=== PATIENT | female | born 1985 | race Caucasian/White ===

== ENCOUNTER 2018-12-02 12:55 | Emergency (ER) | payer OTHER ==
[2018-12-02] MEDS ORDERED: Tetracaine HCl/PF 0.5% 4 ML Bottle EYELF ONE (13:11)
[2018-12-02] MEDS ORDERED: Balanced Salt Solution Ophth Irrig 30 ML Bottle EYELF ONE (13:18)
--- NOTE | 2018-12-02 13:37 | EDM.PDOC ---
ED HPI GENERAL MEDICAL PROBLEM - General Chief Complaint: ENT Problem Stated Complaint: FB to L) eye Time Seen by Provider: 12/02/18 13:52 Source of Information: Reports: Patient History Limitations: Reports: No Limitations - History of Present Illness INITIAL COMMENTS - FREE TEXT/NARRATIVE: Patient is a 33-year-old female who comes in with chief complaint of left eye pain patient states that she was working she was worrying appropriate eye gear for her job a she noted a when coming up and something fell in her left eye at that time patient complained of pain and was brought in for evaluation left eye was examined under topical anesthesia revealed a 1 mm piece of bark this was removed patient still having some discomfort Onset: Today Duration: Minutes:, Getting Worse Location: Reports: Face, Other (Left eye) Quality: Reports: Burning, Stabbing Severity: Moderate Improves with: Reports: None Worsens with: Reports: Movement Associated Symptoms: Reports: No Other Symptoms Treatments BAG PRINTER: Reports: Acetaminophen, NSAIDS Left Eye Pain Score (Numeric/FACES): 8 - Related Data Allergies Allergy/AdvReac Type Severity Reaction Status Date / Time No Known Allergies Allergy Verified 12/02/18 13:04 Home Meds: Home Meds Levothyroxine 25 mcg PO ACBREAKFAST 12/02/18 [History] Omeprazole 40 mg PO DAILY 12/02/18 [History] Vits #93/Iron Fum/FA [ Formula Tablet] 1 each PO DAILY [History] hydrOXYzine HCl [Atarax] 25 mg PO Q8H PRN 12/02/18 [History] metFORMIN [Glucophage XR] 1,000 mg PO DAILY 12/02/18 [History] traZODone HCl [Trazodone HCl] 100 mg PO BEDTIME 12/02/18 [History] Past Medical History Cardiovascular History: Reports: None Respiratory History: Reports: None Gastrointestinal History: Reports: GERD Genitourinary History: Reports: None Musculoskeletal History: Reports: Fracture Neurological History: Reports: Other (See Below) Other Neuro History: infection of frontal lobe at age 21 Psychiatric History: Reports: Anxiety, Depression, Suicidal Ideation Endocrine/Metabolic History: Reports: None Hematologic History: Reports: None Immunologic History: Reports: None Oncologic (Cancer) History: Reports: None Dermatologic History: Reports: None - Infectious Disease History Infectious Disease History: Reports: Chicken Pox, Shingles - Past Surgical History HEENT Surgical History: Reports: Oral Surgery Cardiovascular Surgical History: Reports: None Respiratory Surgical History: Reports: None GI Surgical History: Reports: None Female Surgical History: Reports: Other (See Below) Other Female Surgeries/Procedures: infertility treatments currently 12/02/18 Neurological Surgical History: Reports: None Musculoskeletal Surgical History: Reports: Other (See Below) Other Musculoskeletal Surgeries/Procedures:: left ankle surgery plate and screws Social & Family History - Tobacco Use Smoking Status *Q: Former Smoker Used Tobacco, but Quit: Yes Month/Year Tobacco Last Used: 2013 ED ROS GENERAL - Review of Systems Review Of Systems: ROS reveals no pertinent complaints other than HPI. Constitutional: Reports: No Symptoms HEENT: Reports: Eye Pain Respiratory: Reports: No Symptoms Cardiovascular: Reports: No Symptoms Endocrine: Reports: No Symptoms GI/Abdominal: Reports: No Symptoms : Reports: No Symptoms Musculoskeletal: Reports: No Symptoms Skin: Reports: No Symptoms Neurological: Reports: No Symptoms Psychiatric: Reports: Anxiety Hematologic/Lymphatic: Reports: No Symptoms Immunologic: Reports: No Symptoms ED EXAM GENERAL W FULL EYE - Physical Exam Exam: See Below Exam Limited By: No Limitations General Appearance: Alert, WD/WN, No Apparent Distress Eye Exam: Bilateral Eye: Conjunctival Injection, Corneal Abrasion, EOMI With Correction: No Conjunctiva & Sclera: Left: Foreign Body Cornea Exam: Bilateral: Normal Appearance Ears: Normal External Exam, Normal Canal, Hearing Grossly Normal, Normal TMs Nose: Normal Inspection, Normal Mucosa, No Blood Throat/Mouth: Normal Inspection, Normal Lips, Normal Teeth, Normal Gums, Normal Oropharynx, Normal Voice, No Airway Compromise Head: Atraumatic, Normocephalic Neck: Normal Inspection, Supple, Non-Tender, Full Range of Motion Respiratory/Chest: No Respiratory Distress, Lungs Clear, Normal Breath Sounds, No Accessory Muscle Use, Chest Non-Tender Cardiovascular: Normal Peripheral Pulses, Regular Rate, Rhythm, No Edema, No Gallop, No JVD, No Murmur, No Rub GI/Abdominal: Normal Bowel Sounds, Soft, Non-Tender, No Organomegaly, No Distention, No Abnormal Bruit, No Mass (Male) Exam: No Hernia (Female) Exam: Deferred Rectal (Males) Exam: Normal Exam, Normal Rectal Tone, Prostate Normal Rectal (Female) Exam: Normal Exam, Normal Rectal Tone Back Exam: Normal Inspection Extremities: Normal Inspection, Normal Range of Motion, Non-Tender, Normal Capillary Refill, No Pedal Edema Neurological: Alert, Oriented, CN II-XII Intact, Normal Cognition, Normal Gait, Normal Reflexes, No Motor/Sensory Deficits Psychiatric: Anxious Skin Exam: Warm, Dry, Intact, Normal Color, No Rash Lymphatic: No Adenopathy Course - Vital Signs Last Recorded V/S: Last Vital Signs Temp 98.3 F 12/02/18 13:01 Pulse 89 12/02/18 13:01 Resp 16 12/02/18 13:01 BP 136/88 12/02/18 13:01 Pulse Ox 99 12/02/18 13:01 - Orders/Labs/Meds Orders: Active Orders 24 hr Category Date Time Status Mineral Oil/Petrolatum Oint [Lacri-Lube S.O.P Oint] Med 12/02/18 13:32 Once 1 gm EYELF ONETIME ONE Medication Orders Mineral Oil/White Petrolatum (Lacri-Lube S.O.P Oint) 1 gm EYELF ONETIME ONE Stop: 12/02/18 13:33 Meds: Medications Generic Name Dose Route Start Last Admin Trade Name Freq PRN Reason Stop Dose Admin Mineral Oil/White Petrolatum 1 gm 12/02/18 13:32 Lacri-Lube S.O.P Oint EYELF 12/02/18 13:33 ONETIME ONE Discontinued Medications Generic Name Dose Route Start Last Admin Trade Name Freq PRN Reason Stop Dose Admin Balanced Salt Solution 30 ml 12/02/18 13:18 12/02/18 13:22 Eye Stream Eye Rinse EYELF 12/02/18 13:19 30 ml ONETIME ONE Administration Tetracaine HCl 1 ml 12/02/18 13:11 12/02/18 13:18 Tetracaine 0.5% Steri-Unit Osiris EYELF 12/02/18 13:12 1 ml ASDIRECTED ONE Administration Departure - Departure Time of Disposition: 13:50 Disposition: Home, Self-Care 01 Condition: Fair Clinical Impression: Foreign body of left eye - Discharge Information *PRESCRIPTION DRUG MONITORING PROGRAM REVIEWED*: No *COPY OF PRESCRIPTION DRUG MONITORING REPORT IN PATIENT NELI: No Instructions: Eye Foreign Body Referrals: PCP,Not In Area [Primary Care Provider] - Care Plan Goals: Patient is seen will discharge home foreign body removed cycloplegia applied we' ll put some ice it'll and an eye patch - My Orders Last 24 Hours: My Active Orders 12/02/18 13:32 Mineral Oil/Petrolatum Oint [Lacri-Lube S.O.P Oint] 1 gm EYELF ONETIME ONE - Assessment/Plan Last 24 Hours: My Active Orders 12/02/18 13:32 Mineral Oil/Petrolatum Oint [Lacri-Lube S.O.P Oint] 1 gm EYELF ONETIME ONE
[2018-12-02] MEDS ORDERED: Cyclopentolate 2% Ophth Soln 5 ML Bottle EYELF ONE (13:40)
[2018-12-02] MEDS: Mineral Oil/Petrolatum Ophth Oint 3.5 GM Tube EYELF ONE ×2 (13:41→14:13)
== END 2018-12-02 14:22 | disposition home or self-care (01) ==
LOC: LL.ED 12:55
DX: T15.12XA Foreign body in conjunctival sac, left eye, initial encounter (principal); F41.9 Anxiety disorder, unspecified; F32.9 Major depressive disorder, single episode, unspecified; K21.9 Gastro-esophageal reflux disease without esophagitis; Z79.899 Other long term (current) drug therapy; Z87.891 Personal history of nicotine dependence
CPT/HCPCS: 65205; 99283